=== PATIENT | male | born 1960 | race Caucasian/White ===

== ENCOUNTER 2017-10-27 07:45 | Day surgery (SDC) | payer SELFPAY ==
[2017-10-27] VITALS (10 sets, daily range): BP systolic 128–150; BP diastolic 79–109
[~2017-10-27] VITALS: Ht 180.3 cm; Wt 114.3 kg
[2017-10-27] MEDS ORDERED: LIDOCAINE 1% INJ 50 ML (XYLOCAINE) VIAL ONE (07:53)
[2017-10-27] MEDS ORDERED: HEParin (CATH LAB) 2,000 ML IV ONE (07:54)
[2017-10-27] MEDS ORDERED: NS IV 1000 ML 1,000 ML ONE (07:54)
[2017-10-27] MEDS ORDERED: NS IV 1000 ML 1,000 ML IV SCH (08:00)
[2017-10-27 08:35] LABS: HEMOGLOBIN 14.9 G/DL (13.3-17.7); MEAN PLATELET VOLUME 9.9 FL (7.4-10.4); RED BLOOD COUNT 4.73 10^6/uL (4.35-5.85); WHITE BLOOD COUNT 7.3 10^3/uL (4.3-11.0)
[2017-10-27] MEDS ORDERED: DOXA4TAB PO (08:40)
[2017-10-27] MEDS ORDERED: CYCL5TAB PO (08:41)
[2017-10-27] MEDS ORDERED: UBID1CAP53 PO (08:41)
[2017-10-27] MEDS ORDERED: MAGN200T8 PO (08:42)
[2017-10-27] MEDS ORDERED: ASPI-586 PO (08:43)
[2017-10-27] MEDS ORDERED: FINA5TAB6 PO (08:43)
[2017-10-27] MEDS ORDERED: NAPR250T6 PO (08:43)
[2017-10-27 08:59] LABS: ALANINE AMINOTRANSFERASE 32 U/L (0-55); ALBUMIN 4.4 GM/DL (3.2-4.5); ALKALINE PHOSPHATASE 68 U/L (40-136); BILIRUBIN,TOTAL 0.5 MG/DL (0.1-1.0); BUN/CREATININE RATIO 15; CARBON DIOXIDE 19 MMOL/L (21-32); CHLORIDE 108 MMOL/L (98-107); CHOLESTEROL 271 MG/DL (< 200); CREATININE SERUM 0.84 MG/DL (0.60-1.30); GFR ESTIMATED > 60; GLUCOSE 93 MG/DL (70-105); HDL CHOLESTEROL 43 MG/DL (40-60); POTASSIUM 4.1 MMOL/L (3.6-5.0); SODIUM 139 MMOL/L (135-145); TOTAL PROTEIN 7.7 GM/DL (6.4-8.2); TRIGLYCERIDES 201 MG/DL (<150); VLDL CHOLESTEROL 40 MG/DL (5-40)
[2017-10-27] MEDS ORDERED: INFLUENZA TRIvalent 2017-2018 0.5 ML/45 MCG SYR IM ONE (09:00)
[2017-10-27] MEDS ORDERED: MIDAZOLAM 5 MG/5 ML (VERSED) VIAL ONE (11:33)
[2017-10-27] MEDS ORDERED: fentaNYL INJECTION 100 MCG/2 ML AMP ONE (11:33)
[2017-10-27] MEDS ORDERED: diphenhydrAMINE 50 MG/ML INJ (BENADRYL) ONE (11:34)
[2017-10-27 11:55] LABS: INR 0.9 (0.8-1.4); PROTHROMBIN TIME PATIENT 11.8 SEC (12.2-14.7)
--- NOTE | 2017-10-27 12:05 | Cardiac Procedure Note-CS/ASA ---
Pre-Procedure Note Pre-Op Procedure Note H&P Reviewed The H&P was reviewed, patient examined and no changes noted. Date H&P Reviewed: Oct 27, 2017 Time H&P Reviewed: 12:04 Conscious Sedation Pre-Proced Time Reviewed: 12:04 ASA Class: 3 Airway Mallampati Classification: ([place] appropriate class) I. II. III, IV Lungs Heart ASA score ASA 1: a normal healthy patient ASA 2: a patient with a mild systemic disease (mid diabetes, controlled hypertension, obesity ASA 3: a patient with a severe systemic disease that limits activity (angina , COPD, prior Myocardial infarction) ASA 4: a patient with an incapacitating disease that is a constant threat to life (CHF, renal failure) ASA 5: a moribund patient not expected to survive 24 hrs. (ruptured aneurysm) ASA 6: a declared brain patient whose organs are being harvested. For emergent operations, add the letter E after the classification Grade 3 Sedation Plan: Analgesia, Amnesia, Plan communicated to team members, Discussed options with patient/fam, Discussed risks with patient/fam Note The patient is an appropriate candidate to undergo the planned procedure, sedation, and anesthesia. The patient immediately re-assessed prior to indication. REGULO VU MD FACP FAC CCDS Oct 27, 2017 12:04
[2017-10-27] MEDS ORDERED: NITRO DRIP 25000 MCG/D5W 250 ML IV ONE (12:17)
[2017-10-27] MEDS ORDERED: MIDAZOLAM 2 MG/2 ML (VERSED) VIAL ONE (12:17)
[2017-10-27] MEDS ORDERED: HEParin 1000 UNIT/ML (10ML VIAL) FOR BOLUS ONE (12:17)
[2017-10-27] MEDS ORDERED: EPTIFIBATIDE BOLUS 20 ML IV ONE (12:21)
[2017-10-27] MEDS ORDERED: CLOPIDOGREL 300 MG (PLAVIX) TABLET PO ONE (12:37)
[2017-10-27] MEDS ORDERED: ASPIRIN 81 MG CHEW (CHILDREN'S ASA) ONE (12:37)
[2017-10-27] MEDS ORDERED: PATIENT MAY USE OWN MEDS, ALL PO SCH (13:00)
[2017-10-27] MEDS ORDERED: meTOprolol SUCCINATE 100 MG (TOPROL XL) TAB PO ONE (13:00)
[2017-10-27] MEDS ORDERED: ACETAMINOPHEN 325 MG TABLET/CAPLET (TYLENOL) PO PRN (13:00)
--- NOTE | 2017-10-27 13:45 | CARDIAC CATHETERIZATION ---
DATE OF SERVICE: 10/27/2017 INDICATION FOR THE PROCEDURE: The patient is a 57-year-old man with multiple coronary artery disease risk factors who has been experiencing symptoms of increasing angina. Cardiac catheterization was carried out today after having obtained an informed consent. PROCEDURE DESCRIPTION: He was brought to the cardiac catheterization laboratory in a fasting state. Right groin was prepared and draped in the usual sterile fashion. Lidocaine 1% was used for local anesthesia. Modified Seldinger technique was used to advance a 5-Guamanian sheath right femoral artery. A 5-Guamanian JL4 catheter for right coronary angiography and 5-Guamanian JR4 catheter for right coronary angiography and 5-Guamanian pigtail catheter was used for left heart catheterization, left ventricular angiography. PERCUTANEOUS INTERVENTION TO THE LEFT ANTERIOR DESCENDING ARTERY: Following completion of the diagnostic procedure, we exchanged the sheath over a wire for a 6 Guamanian sheath. We gave 7000 units of intravenous heparin. We gave a double bolus of Integrilin. We used a 6-Guamanian JL4 guide catheter to engage the left coronary artery. We advanced a BMW wire across the lesion in the mid left anterior descending artery and the tip was placed in the distal vessel. We advanced the Alpine Xience 3.5 x 12 mm stent to the lesion. The stent was deployed at 18 atmospheres. Subsequent angiography revealed 0% residual stenosis. Flow throughout the vessel was normal. Angioplasty equipment was removed. Angiography of the right femoral artery was carried out through the sheath. Mynx was used to achieve hemostasis. HEMODYNAMICS: Left ventricular end-diastolic pressure following coronary angiography was 9 mmHg. There was no significant pressure gradient on pullback across the aortic valve. Ascending aortic pressure is 143/84 with a mean of 112 mmHg. CORONARY ANGIOGRAPHY: Left main coronary is free of significant disease. Left anterior descending artery had 70% stenosis in its mid portion with an ulcerated plaque. To this, successful stenting was carried out with Alpine Xience 3.5 x 12 mm stent, which reduced the stenosis to 0% residual. Left circumflex artery has mild plaques. The first obtuse marginal branch of the left circumflex artery has ostial and proximal 50% stenosis. The right coronary artery is small in caliber and is occluded in its mid portion. There are left to right collaterals. CONCLUSIONS: 1. Coronary artery disease is consisting of 70% mid vessel stenosis of the LAD to which successful stenting was carried out with Alpine Xience to 3.5 x 12 mm stent. There is complete occlusion of the distal right coronary artery and there is collateralization of RCA from the left coronary system. The left circumflex artery exhibits moderate disease in its obtuse marginal branches. 2. Well-preserved global left ventricular systolic function with ejection fraction of 60 to 65%. 3. Normal left ventricular end-diastolic pressure. 4. No significant mitral regurgitation seen on this study. DISCUSSION AND RECOMMENDATIONS: Risk factor modification has been reviewed with him. Dual antiplatelet therapy is being added to the regimen. He will also be treated with beta nella and statins, as tolerated. He is being hospitalized for observation after today's interventional procedure. Job ID: [id number] DocumentID: [id number] Dictated Date: 10/27/2017 12:51:03 Research Program Internship Date: 10/27/2017 13:44:30 Dictated By: REGULO VU MD, MA, FACP, FACC, MTDD
[2017-10-27] MEDS: NS IV 1000 ML 1,000 ML IV SCH (19:08)
[2017-10-27] MEDS ORDERED: CYCLOBENZAPRINE 10 MG (FLEXERIL) TAB PO PRN (21:00)
[2017-10-27] MEDS ORDERED: ATORVASTATIN 80 MG (LIPITOR) TABLET PO SCH (21:00)
[2017-10-27] MEDS ORDERED: FINASTERIDE (PROSCAR) 5 MG TAB PO SCH (21:00)
[2017-10-28 00:14] VITALS: BP 127/87
[2017-10-28] MEDS: NS IV 1000 ML 1,000 ML IV SCH (00:19)
[2017-10-28 03:57] LABS: HEMOGLOBIN 14.3 G/DL (13.3-17.7); MEAN PLATELET VOLUME 10.2 FL (7.4-10.4); RED BLOOD COUNT 4.51 10^6/uL (4.35-5.85); RED CELL DISTRIBUTION WIDTH 14.2 % (10.0-14.5); WHITE BLOOD COUNT 9.3 10^3/uL (4.3-11.0)
[2017-10-28 04:19] LABS: BUN/CREATININE RATIO 14; CARBON DIOXIDE 21 MMOL/L (21-32); CHLORIDE 106 MMOL/L (98-107); CREATININE SERUM 0.83 MG/DL (0.60-1.30); GFR ESTIMATED > 60; GLUCOSE 92 MG/DL (70-105); POTASSIUM 3.9 MMOL/L (3.6-5.0); SODIUM 137 MMOL/L (135-145)
[2017-10-28 06:08] VITALS: BP 115/61
[2017-10-28 08:00] VITALS: BP 118/70
[2017-10-28] MEDS ORDERED: MAGNESIUM OXIDE (MAG-OX)400 MG TAB PO SCH (08:00)
--- NOTE | 2017-10-28 08:04 | Progress Note-Cardiology ---
Cardiology SOAP Progress Note Objective: I&O/Vital Signs Weight (Pounds): 252 Weight (Ounces): 0.0 Weight (Calculated Kilograms): 114.684606 Results/Procedures: Labs Microbiology 10/27/17 MRSA Screen - Final, Complete MRSA not isolated A/P: Assessment: Coronary artery disease is consisting of 70% mid vessel stenosis of the LAD to which successful stenting was carried out with Alpine Xience to 3.5 x 12 mm stent. There is complete occlusion of the distal right coronary artery and there is collateralization of RCA from the left coronary system. The left circumflex artery exhibits moderate disease in its obtuse marginal branches. Well-preserved global left ventricular systolic function with ejection fraction of 60 to 65%. Normal left ventricular end-diastolic pressure. No significant mitral regurgitation seen on this study. Per cardiac cath of 10-27-17. HTN HLP - LDL greater than 200 - statin tx BPH Family h/o CAD (father in his 60's, brother x2 in their 60's, brother 50's, sister in her 50's) Anxiety Marijuana use - cessation advised VERONICA VASQUEZ Oct 28, 2017 08:04
[2017-10-28] MEDS ORDERED: meTOprolol SUCCINATE 100 MG (TOPROL XL) TAB PO SCH (09:00)
[2017-10-28] MEDS ORDERED: CLOPIDOGREL 75 MG (PLAVIX) TABLET PO SCH (09:00)
[2017-10-28] MEDS ORDERED: ASPIRIN 81 MG CHEW (CHILDREN'S ASA) PO SCH (09:00)
[2017-10-28] MEDS ORDERED: NON-FORMULARY MEDICATION 1 EA EA (Ubidecarenone/Vit E Acetate (Co Q-10 100 mg Softgel) 1 E PO SCH (09:00)
[2017-10-28] MEDS ORDERED: CLOP75TA28 PO (09:27)
[2017-10-28] MEDS ORDERED: METO-395 PO (09:27)
[2017-10-28] MEDS ORDERED: ATOR80TA76 PO (09:27)
--- NOTE | 2017-10-28 09:30 | Discharge Inst-Cardiology ---
Discharge Inst-Cardiac Discharge Medications New Medications: Atorvastatin Calcium (Atorvastatin Calcium) 80 Mg Tablet 80 MG PO HS, #30 TAB 5 Refills Clopidogrel Bisulfate (Clopidogrel) 75 Mg Tablet 75 MG PO DAILY, #30 TAB 5 Refills Metoprolol Succinate (Metoprolol Succinate) 100 Mg Tab.er.24h 100 MG PO DAILY, #30 TAB 5 Refills Continued Medications: Aspirin (Aspir 81) 81 Mg Tablet.dr 81 MG PO DAILY, TAB Cyclobenzaprine HCl (Cyclobenzaprine HCl) 5 Mg Tablet 5 MG PO BID PRN for MUSCLE SPASMS, TAB Finasteride (Finasteride) 5 Mg Tablet 5 MG PO HS, TAB Magnesium Oxide (Mag-Oxide) 200 Mg Tablet 200 MG PO DAILY, TAB Ubidecarenone/Vit E Acetate (Co Q-10 100 mg Softgel) 1 Each Capsule 1 EACH PO DAILY, CAP Discontinued Medications: Doxazosin Mesylate (Cardura) 4 Mg Tablet 4 MG PO DAILY, TAB Naproxen (Naproxen) 250 Mg Tablet 250 MG PO BID, TAB New, Converted or Re-Newed RX: Call to Patients Pharmacy Patient Instructions Patient Instructions: PLEASE SCHEDULE FOLLOW UP APPOINTMENT TO SEE DR. VU AT [facility] ON SATURDAY, NOVEMBER 04, 2017 LAB: FASTING LIPID PANEL AND CMP IN 4 WEEKS VERONICA VASQUEZ Oct 28, 2017 09:30
--- NOTE | 2017-10-28 10:42 | Progress Note-Cardiology ---
Cardiology SOAP Progress Note Subjective: No cp or palp or syncope. No significant groin or leg discomfort. Generally feels well and wishes to go home Objective: I&O/Vital Signs Vital Sign - Last 12Hours 10/28/17 10/28/17 10/28/17 10/28/17 00:14 01:00 06:08 07:00 Temp 98.5 98.0 Pulse 73 67 57 98 Resp 18 16 B/P (MAP) 127/87 (100) 115/61 (79) Pulse Ox 97 95 O2 Delivery Room Air Room Air 10/28/17 10/28/17 08:00 09:00 Temp 98.0 Pulse 71 Resp 16 B/P (MAP) 118/70 (86) Pulse Ox 97 96 O2 Delivery Room Air Room Air Intake and Output 10/28/17 00:00 Intake Total 200 ml Balance 200 ml Weight (Pounds): 252 Weight (Ounces): 0.0 Weight (Calculated Kilograms): 114.988738 Groin site without hematoma: No Condition: DP/PT pulses palpable Bruising: moderated bruising Constitutional: AAO x 3, well-developed, well-nourished Respiratory: No accessory muscle use, lungs clear to percussion, lungs clear to auscultation Cardiovascular: regular rate-rhythm, S1 and S2, systolic murmur (Soft ZEFERINO at card base) Gastrointestional: No tender, soft, No guarding, No rebound, audible bowel sounds Extremities: No clubbing, No cyanosis, No significant edema Neurologic/Psychiatric: oriented x 3, grossly intact, power is 5/5 both on sides Skin: No rash on exposed areas Results/Procedures: Labs Laboratory Tests 10/28/17 03:05: White Blood Count 9.3, Red Blood Count 4.51, Hemoglobin 14.3, Hematocrit 41, Mean Corpuscular Volume 91, Mean Corpuscular Hemoglobin 32, Mean Corpuscular Hemoglobin Concent 35, Red Cell Distribution Width 14.2, Platelet Count 223, Mean Platelet Volume 10.2, Sodium Level 137, Potassium Level 3.9, Chloride Level 106, Carbon Dioxide Level 21, Anion Gap 10, Blood Urea Nitrogen 12, Creatinine 0.83, Estimat Glomerular Filtration Rate > 60, BUN/Creatinine Ratio 14, Glucose Level 92, Calcium Level 9.0 Laboratory Tests 10/27/17 08:27 10/28/17 03:05 A/P: Assessment: CAD. Card cath of 10/27/17: 70% mid vessel stenosis of the LAD to which successful stenting was carried out with Alpine Xience to 3.5 x 12 mm stent. There is complete occlusion of the distal right coronary artery and there is collateralization of RCA from the left coronary system. The left circumflex artery exhibits moderate disease in its obtuse marginal branches. Well- preserved global left ventricular systolic function with ejection fraction of 60 to 65%. Normal left ventricular end-diastolic pressure. No significant mitral regurgitation seen on this study Moderate post-cath R groin hematoma: stable and resolving HTN HLP - LDL greater than 200 - statin tx BPH Family h/o CAD (father in his 60's, brother x2 in their 60's, brother 50's, sister in her 50's) Anxiety Marijuana use - cessation advised Plan: We discussed the findings of card cath and cor intervention We advised and discussed cor risk factor mod We discussed groin care We advised close outpatient f/u for now REGULO VU MD FACP FAC CCDS Oct 28, 2017 10:42
== END 2017-10-28 10:55 | disposition home or self-care (01) ==
LOC: CARD 07:45 → SURG 13:45 → ICU 17:00 → CARD 10-28 10:55
PROVIDERS: ATTEND Nurse Practitioner Family
DX: I25.10 Atherosclerotic heart disease of native coronary artery without angina pectoris (principal); I97.630 Postprocedural hematoma of a circulatory system organ or structure following a cardiac catheterization; I10 Essential (primary) hypertension; E78.2 Mixed hyperlipidemia; N40.0 Benign prostatic hyperplasia without lower urinary tract symptoms; F41.9 Anxiety disorder, unspecified; F12.90 Cannabis use, unspecified, uncomplicated; R06.09 Other forms of dyspnea; Z82.49 Family history of ischemic heart disease and other diseases of the circulatory system; Z79.899 Other long term (current) drug therapy
CPT/HCPCS: 36415; 80048; 80053; 80061; 85027; 85610; 85730; 87081; 93005; 93458